=== PATIENT | male | born 2000 | race Caucasian/White ===

== ENCOUNTER 2019-08-01 22:22 | Emergency (ER) | payer BC ==
[~2019-08-01] VITALS: Ht 182.9 cm; Wt 93.0 kg
[2019-08-01 23:05] VITALS: BP_SYST 150
--- NOTE | 2019-08-02 02:08 | NUR ---
Patient left without being seen. No further treatment provided. ER MD aware
== END 2019-08-02 02:08 | disposition left against medical advice (07) ==
LOC: SED 22:22
DX: R05 Cough (principal); Z53.21 Procedure and treatment not carried out due to patient leaving prior to being seen by health care provider
CPT/HCPCS: 71045; 99281